=== PATIENT | female | born 1985 | race Two or more races ===

== ENCOUNTER 2018-08-29 13:30 | Emergency (ER) | payer MEDICAID ==
[~2018-08-29] VITALS: Ht 157.5 cm; Wt 85.7 kg
[2018-08-29 13:39] VITALS: BP 124/67
[2018-08-29] MEDS ORDERED: KETOROLAC TROMETHAMINE INJ 30 MG/ML VIAL ONE (14:25)
[2018-08-29] MEDS ORDERED: HYDROCODONE/APAP 10/325MG 1 EA TABLET ONE (14:26)
[2018-08-29] MEDS ORDERED: ONDANSETRON 4 MG TAB.RAPDIS ONE (14:26)
[2018-08-29] MEDS ORDERED: ONDANSETRON 4 MG TAB.RAPDIS PO ONE (14:30)
[2018-08-29] MEDS ORDERED: HYDROCODONE/APAP 10/325MG 1 EA TABLET PO ONE (14:30)
[2018-08-29] MEDS ORDERED: KETOROLAC TROMETHAMINE INJ 60 MG/2 ML VIAL IM ONE (14:30)
== END 2018-08-29 15:37 | disposition home or self-care (01) ==
LOC: ER 13:30
DX: D57.00 Hb-SS disease with crisis, unspecified (principal); M25.511 Pain in right shoulder; E11.9 Type 2 diabetes mellitus without complications; Z90.710 Acquired absence of both cervix and uterus; Z98.890 Other specified postprocedural states; Z88.6 Allergy status to analgesic agent
CPT/HCPCS: 96372; 99283; J1885; Q0162